=== PATIENT | male | born 1995 | race Caucasian/White ===

== ENCOUNTER 2023-06-15 22:31 | Emergency (ER) | payer MEDICAID, SELFPAY ==
--- NOTE | 2023-06-15 | ECG_ITS ---
Test Reason : SEIZURE Blood Pressure : / mmHG Vent. Rate : 075 BPM Atrial Rate : 075 BPM P-R Int : 148 ms QRS Dur : 086 ms QT Int : 370 ms P-R-T Axes : 041 085 -38 degrees QTc Int : 413 ms Normal sinus rhythm T wave abnormality, consider lateral ischemia Abnormal ECG No previous ECGs available Referred By: Generic ED Physician Electronically Signed By:AMBAR MONAE MD
[2023-06-15 22:40] VITALS: BP 123/76; BP 152/84; PULSE 74; PULSE 76; RESP 20; TEMP 36.6; O2SAT 96; BMI 25.8
--- NOTE | 2023-06-15 23:09 | ED_ITS ---
HPI - Seizure General Chief Complaint: Seizure Stated Complaint: 5 min seizure, postictal state Time Seen by Provider: 06/15/23 22:57 Source: patient and EMS Mode of arrival: EMS Limitations: no limitations History of Present Illness HPI Narrative: patient comes to the emergency room complaining of a seizure that happened at [facility]. Patient is coming in on a Section 12. According to the patient, patient has history of nonepileptic seizures. Patient states that he is not on any epileptic medications. Related Data Allergies Allergy/AdvReac Type Severity Reaction Status Date / Time alcohol [ALCOHOL] Allergy Unknown UNKNOWN Unverified 03/11/20 18:42 bee pollen [BEE STINGS] Allergy Unknown ANAPHYLAXIS Unverified 03/11/20 18:42 blueberry [BLUEBERRY] Allergy Unknown ANAPHYLAXIS Unverified 03/11/20 18:42 bupropion [From WELLBUTRIN] Allergy Unknown ONEL Unverified 03/11/20 18:42 ANASTASIIA SYNDROME cranberry [CRANBERRY] Allergy Unknown ANAPHYLAXIS Unverified 03/11/20 18:42 Review of Systems 2 Review of Systems: Constitutional : No Weight loss, No Fever, No Chills, No Night Sweats, No Fatigue, No Malaise ENT/Mouth : No Hearing loss, No Ear Pain, No Nasal Congestion, No Sinus Pain, No Hoarseness, No sore throat, No Rhinorrhea, No Swallowing Difficulty Eyes: No Eye Pain, No Swelling, No Redness, No Foreign Body, No Discharge, No Vision Changes Cardiovascular : No Chest Pain, No SOB, No Dyspnea on Exertion, No Orthopnea, No Edema, No Palpitations Respiratory : No Cough, No Sputum, No Wheezing, No Smoke Exposure, No Dyspnea Gastrointestinal : No Nausea, No Vomiting, No Diarrhea, No Constipation, No abdominal Pain, No Hematochezia, No Melena Genitourinary : no irregular bleeding, No Dysuria, No Urinary Frequency, No Hematuria, No Urinary Incontinence, No Urgency, No Flank Pain, No Urinary Flow Changes, No Hesitancy Musculoskeletal : No joint pain, No Myalgias, No Joint Swelling Skin : No Skin Lesions, No rash Neuro : No Weakness, No Numbness, No Paresthesias, No Loss of Consciousness, No Dizziness, No Headache Psych : Patient came in with a Section 12 from [facility] Heme/Lymph: No Bruising, No Bleeding,No Lymphadenopathy Endocrine : No Polyuria, No Polydipsia, No Temperature Intolerance Physical Exam 2 Vital Signs: Vital Signs: Last Vital Signs Temp 97.8 F 06/15/23 22:40 Pulse 74 06/15/23 22:40 Resp 20 06/15/23 22:40 BP 123/76 06/15/23 22:40 Pulse Ox 96 06/15/23 22:40 O2 Del Method Room Air 06/15/23 22:40 BMI result Body Mass Index 25.8 Const: Other: Appearance: Alert. Oriented X3. No acute distress. Eyes: Pupils equal, round and reactive to light. ENT: Pharynx normal. Neck: Normal inspection. Neck supple. No lymph nodes noted. No crepitus CVS: Normal heart rate and rhythm. Pulses normal. Normal S1 and S2 Respiratory: No respiratory distress. Breath sounds normal. No Wheezing. No rales Abdomen: Soft and nontender. No rigidity. No distention. Skin: Skin warm and dry. Normal skin color. Normal skin turgor. Extremities: No lower extremity edema. No Lacerations. No Rash Neuro: Oriented X 3. No motor deficit. No sensory deficit. Moving all extremities. No slurred speech. CN 2 through 12 grossly intact Psych: calm, cooperative, normal affect Medical Decision Making Medical Decision Making [facility] Narrative: - up here patient is awake, alert and oriented x3. - Patient's hematology at baseline, chemistry lipase wnl, lactic acid within normal limits. patient's vital stable - urinalysis within normal limits, urine toxicology positive for amphetamines and marijuana. - Patient ready for discharge/ transfer back to [facility] Differential Diagnosis Differential Diagnoses: The differential diagnosis associated with the presentation includes ( seizure, pseudo-seizure, nonepileptic seizure) Lab Data [facility] Lab Attestation statement: I reviewed the patient's lab results. 06/15/23 23:03 06/15/23 23:03 Labs: Lab Results 06/15/23 Range/Units 23:03 WBC 9.0 (4.8-10.8) X10*3/uL RBC 4.44 L (4.60-5.80) X10*6/uL Hgb 14.2 (14.0-18.0) g/dl Hct 41.0 L (42.0-52.0) % MCV 92.3 (80.0-98.0) fL MCH 32.0 (27.0-33.0) pg MCHC 34.6 (31.0-36.0) g/dl RDW 13.5 (11.0-16.0) % Plt Count 327 (160-400) X10*3/uL MPV 10.2 (9.4-12.4) fL Immature Gran % (Auto) 0.2 (0.0-0.4) % Neut % (Auto) 56.7 (45-73) % Lymph % (Auto) 33.1 (20-40) % [place] % (Auto) 7.8 (2-11) % Eos % (Auto) 1.8 (0-4) % Baso % (Auto) 0.4 (0-2) % Lymph # (Auto) 3.0 (1.2-4.9) X10*3/uL [place] # (Auto) 0.7 (0.1-1.2) X10*3/uL Eos # (Auto) 0.2 (0.0-0.4) X10*3/uL Baso # (Auto) 0.0 (0.0-0.2) X10*3/uL Abs Immat Gran (auto) 0.02 (0.00-0.03) X10*3/uL Absolute Neuts (auto) 5.1 (2.0-8.3) x10*3/uL Absolute Nucleated RBC 0.000 (0.0-0.012) X10*3/uL Nucleated RBC % (auto) 0.0 (0.0-0.2) /100WBC Urine Color Yellow Urine Appearance Clear Urine pH 5.5 (5.0-9.0) Ur Specific [place] <= 1.005 (1.005-1.025) Urine Protein Negative (Neg-Trace) mg/dL Urine Glucose (UA) Negative (Negative) mg/dL Urine Ketones Negative (Negative) mg/dL Urine Blood Negative (Negative) Urine Nitrite Negative (Negative) Ur Leukocyte Esterase Negative (Negative) Urine Opiates Screen Not Detected (Not Detect) Urine Fentanyl Screen Not Detected (Not Detect) Ur Barbiturates Screen Not Detected (Not Detect) Ur Phencyclidine Scrn Not Detected (Not Detect) Ur Amphetamines Screen POSITIVE H (Not Detect) U Benzodiazepines Scrn Not Detected (Not Detect) Urine Cocaine Screen Not Detected (Not Detect) U Marijuana (THC) Screen POSITIVE H (Not Detect) Discharge Plan Discharge Clinical Impression: Psychogenic nonepileptic seizure Patient Disposition: Home, Self-Care Instructions: Nonepileptic Seizures (ED) Additional Instructions: Please follow-up with your primary care physician tomorrow. If you have any worsening or new symptoms, please return to the emergency room or call 911
[2023-06-15 23:10] LABS: MANUAL DIFF FLAG NO
[2023-06-15 23:12] LABS: Basophils Percent Auto 0.4 % (0-2); Eosinophils Absolute Auto 0.2 X10*3/uL (0.0-0.4); Eosinophils Percent Auto 1.8 % (0-4); Hemoglobin 14.2 g/dl (14.0-18.0); Imm Gran Abs Auto 0.02 X10*3/uL (0.00-0.03); Imm Gran Pct Auto 0.2 % (0.0-0.4); Lymphocytes Percent Auto 33.1 % (20-40); Mean Corpuscular HGB Conc 34.6 g/dl (31.0-36.0); Mean Corpuscular Volume 92.3 fL (80.0-98.0); Mean Platelet Volume 10.2 fL (9.4-12.4); Monocytes Absolute Auto 0.7 X10*3/uL (0.1-1.2); Monocytes Percent Auto 7.8 % (2-11); Neutrophils Absolute Auto 5.1 x10*3/uL (2.0-8.3); Neutrophils Percent Auto 56.7 % (45-73); Platelet Count 327 X10*3/uL (160-400); Red Blood Count 4.44 X10*6/uL (4.60-5.80); Red Cell Distribution Width 13.5 % (11.0-16.0)
[2023-06-15 23:13] LABS: Appearance Urine Clear; Color Urine Yellow; Glucose Urine UA Negative (Negative); Leukocyte Esterase Urine Negative (Negative); Nitrite Urine Negative (Negative); PH 5.5 (5.0-9.0); Specific Gravity - Urine <= 1.005 (1.005-1.025); Urine Blood Negative (Negative); Urine Ketones Negative (Negative); Urine Protein Negative (Neg-Trace)
--- NOTE | 2023-06-15 23:15 | PC.NURSE ---
pt hammad from [facility] after staff reports seeing pt seize for 5 minutes on the floor. pt reports feeling tired before having seizure. pt now reports photosensitivity and fatigue. [facility] and si. pt currently denies thoughts of si/hi. pt normal sinus on tele. 1:1 sitter at bedside. bellows charger assembler aware of pt non green change management consultant. IV established, 20G left ac, labs obtained.
[2023-06-15 23:19] LABS: Amphetamine Screen Urine POSITIVE (Not Detect); Barbiturates, Urine Not Detected (Not Detect); Benzodiazepines Screen Urine Not Detected (Not Detect); Cannabinoid Screen Urine POSITIVE (Not Detect); Cocaine Screen Urine Not Detected (Not Detect); Fentanyl, urine Not Detected (Not Detect); Opiate Screen Urine Not Detected (Not Detect); Phencyclidine Screen Urine Not Detected (Not Detect)
[2023-06-15 23:27] LABS: Alanine Aminotransferase 17 U/L (0-40); Albumin Level 4.2 g/dL (3.5-5.0); Alkaline Phosphatase 44 U/L (39-117); Anion Gap 10 (12-20); Aspartate Amino Transferase 21 U/L (5-37); Bilirubin Total 0.8 mg/dL (0.0-1.0); Blood Urea Nitrogen 17 mg/dL (9-16); Calcium 9.7 mg/dL (8.4-10.2); Carbon Dioxide 25 mmol/L (22-29); Chloride 105 mmol/L (96-108); Creatinine Clr Calc Pharmacy 131.3; Estimated Glomerular Filt Rate > 60; Glucose Random 111 mg/dL (60-115); Potassium 3.4 mmol/L (3.3-5.1); Sodium 137 mmol/L (135-145); Total Protein 6.7 g/dL (6.5-8.0)
[2023-06-15 23:28] LABS: Bacteria Urine None Seen (None Seen); Hyaline Casts Urine 0-2 /LPF (0-2); RBC Urine 0-2 /HPF (0-2); Squamous Epithelial Cell Urine 0-2 /HPF (0-2); WBC Urine 0-5 /HPF (0-5)
--- NOTE | 2023-06-16 00:06 | MHC.EDTECH ---
call out to sandor at [phone] to book transport for pt, estimated eta given is [phone]
--- NOTE | 2023-06-16 00:31 | PC.NURSE ---
attempted to give report to Teresa spivey 3 times, no answer.
[2023-06-16 02:53] VITALS: BP 112/58; PULSE 53; RESP 16; TEMP 36.6; O2SAT 96
--- NOTE | 2023-06-16 02:54 | PC.NURSE ---
ems at bedside to transport pt to [facility]. pt ambulated on to ems stretcher with steady gait.
== END 2023-06-16 02:56 | disposition home or self-care (01) ==
PROVIDERS: Emergency Provider Emergency Medicine
DX: R56.9 Unspecified convulsions (principal); R94.31 Abnormal electrocardiogram [ECG] [EKG]; F12.122 Cannabis abuse with intoxication with perceptual disturbance; Z79.899 Other long term (current) drug therapy
CPT/HCPCS: 36415; 80053; 80307; 81001; 83605; 85025; 93005; 99284

== ENCOUNTER → 2023-06-15 22:42 | Outpatient (BNV) | payer MEDICAID, SELFPAY | PROVIDERS: Emergency Provider Emergency Medicine; Visit Provider Internal Medicine Cardiovascular Disease | DX: R94.31 Abnormal electrocardiogram [ECG] [EKG] (principal) | CPT/HCPCS: 93010 ==

== ENCOUNTER 2023-06-17 09:01 | Emergency (ER) | payer MEDICAID, SELFPAY ==
[2023-06-17 09:12] VITALS: BP 130/70; PULSE 80; O2SAT 98; BMI 25.3
[2023-06-17 09:15] VITALS: BP 121/76; PULSE 70; RESP 16; TEMP 36.8; O2SAT 96
--- NOTE | 2023-06-17 09:36 | ED_ITS ---
HPI - Seizure General Chief Complaint: Seizure Stated Complaint: SZ,AWAKE AND ALERT PER EMS Time Seen by Provider: 06/17/23 09:12 Source: patient Mode of arrival: EMS History of Present Illness HPI Narrative: 28-year-old male who presents via EMS from [facility] with a known history psychogenic seizures, not currently on any medication and currently at [facility] for voluntary admission after SI with plan to cut his throat or wrists. Patient reports that he was very upset this morning because they have not renewed his albuterol inhaler or his Flonase, he became very angry and then staff reports that he had seizure-like activity. Patient denies any headache at this time. Seizure History: Yes Related Data Allergies Allergy/AdvReac Type Severity Reaction Status Date / Time alcohol [ALCOHOL] Allergy Unknown UNKNOWN Verified 06/17/23 09:12 bee pollen [BEE STINGS] Allergy Unknown ANAPHYLAXIS Verified 06/17/23 09:12 blueberry [BLUEBERRY] Allergy Unknown ANAPHYLAXIS Verified 06/17/23 09:12 bupropion [From WELLBUTRIN] Allergy Unknown ONEL Verified 06/17/23 09:12 ANASTASIIA SYNDROME cranberry [CRANBERRY] Allergy Unknown ANAPHYLAXIS Verified 06/17/23 09:12 Review of Systems 2 Review of Systems: Pertinent positives and negatives as stated in HPI PMFSH Past Medical History Source: nursing notes reviewed Social History Social History Smoked in Last 30 Days: No Use of substances other than those prescribed or required for medical reasons: No Advance Directives: No Advance Directives Information Provided: No Physical Exam 2 Vital Signs: Vital Signs: Last Vital Signs Temp 98.0 F 06/17/23 11:59 Pulse 70 06/17/23 11:59 Resp 16 06/17/23 11:59 BP 127/66 06/17/23 11:59 Pulse Ox 97 06/17/23 11:59 O2 Del Method Room Air 06/17/23 11:59 BMI result Body Mass Index 25.3 VITAL SIGNS: Reviewed. GENERAL: Well developed, well nourished, in no acute distress. HEAD: Normocephalic/atraumatic EYES: PERRLA, EOMI EARS: Ext canals without abnormality, TMs non-bulging and non-erythematous NOSE: Nares patent bilateral OROPHARYNX: no oral lesions noted, posterior pharynx clear and non-erythematous without noted tonsillar enlargement/erythema/exudates NECK: Supple, no adenopathy LUNGS: Normal breath sounds. No adventitious sounds or accessory muscle use. SpO2<96> CARDIOVASCULAR: Regular rate and rhythm without noted murmurs ABDOMEN: Soft, non-tender, non-distended with bowel sounds. MUSCULOSKELETAL: No tenderness, deformities, or effusions noted on gross inspection. EXTREMITIES: No cyanosis, clubbing or edema. SKIN: Inspection of the skin reveals no rashes NEUROLOGIC: Alert and oriented x 4. Strength and sensation to light touch were grossly intact x 4. Medical Decision Making Medical Decision Making [facility] Narrative: 28-year-old male with history and clinical presentation most consistent with emotional induced psychogenic/nonepileptic seizure. Patient is not postictal and there are no demonstrated injuries. I will evaluate for evidence of underlying infection/electrolyte etiologies but otherwise plan to discharge back to the facility after workup. Patient was just here on 06/15- for similar presentation. I reviewed all investigations and hematologic indices remain chronically stable there are no acute derangements. Chemistry indices are grossly within normal limits. Urinalysis is negative. Viral testing is negative for COVID-19 and influenza. My interpretation is that patient experienced and emotionally induced psychogenic seizure, there is no evidence to suggest infection/anemia or electrolyte derangements. He is otherwise discharged back to the facility in stable condition. Differential Diagnosis Differential Diagnoses: The differential diagnosis associated with the presentation includes Please see the discussion above Admission/Observation Consideration of admission/observation: Escalation of care including admission/observation considered Please see the discussion above Lab Data [facility] Lab Attestation statement: I reviewed the patient's lab results. Please see the discussion above 06/17/23 10:22 06/17/23 10:22 Labs: Lab Results 06/17/23 06/17/23 Range/Units 10:22 10:55 WBC 5.9 (4.8-10.8) X10*3/uL RBC 4.39 L (4.60-5.80) X10*6/uL Hgb 14.0 (14.0-18.0) g/dl Hct 40.6 L (42.0-52.0) % MCV 92.5 (80.0-98.0) fL MCH 31.9 (27.0-33.0) pg MCHC 34.5 (31.0-36.0) g/dl RDW 13.7 (11.0-16.0) % Plt Count 293 (160-400) X10*3/uL MPV 9.9 (9.4-12.4) fL Immature Gran % (Auto) 0.2 (0.0-0.4) % Neut % (Auto) 61.5 (45-73) % Lymph % (Auto) 25.7 (20-40) % [place] % (Auto) 11.1 H (2-11) % Eos % (Auto) 1.0 (0-4) % Baso % (Auto) 0.5 (0-2) % Lymph # (Auto) 1.5 (1.2-4.9) X10*3/uL [place] # (Auto) 0.7 (0.1-1.2) X10*3/uL Eos # (Auto) 0.1 (0.0-0.4) X10*3/uL Baso # (Auto) 0.0 (0.0-0.2) X10*3/uL Abs Immat Gran (auto) 0.01 (0.00-0.03) X10*3/uL Absolute Neuts (auto) 3.6 (2.0-8.3) x10*3/uL Absolute Nucleated RBC 0.000 (0.0-0.012) X10*3/uL Nucleated RBC % (auto) 0.0 (0.0-0.2) /100WBC Sodium 141 (135-145) mmol/L Potassium 4.1 D (3.3-5.1) mmol/L Chloride 108 (96-108) mmol/L Carbon Dioxide 24 (22-29) mmol/L Anion Gap 13 (12-20) BUN 12 (9-16) mg/dL Creatinine 0.86 (0.5-1.4) mg/dL Estim Creat Clear Calc 126.7 Estimated GFR > 60 Random Glucose 92 (60-115) mg/dL Calcium 9.6 (8.4-10.2) mg/dL Total Bilirubin 1.1 H (0.0-1.0) mg/dL AST 22 (5-37) U/L ALT 17 (0-40) U/L Alkaline Phosphatase 44 (39-117) U/L Total Protein 6.9 (6.5-8.0) g/dL Albumin 4.3 (3.5-5.0) g/dL Urine Color Dark Yellow Urine Appearance Clear Urine pH 5.5 (5.0-9.0) Ur Specific [place] 1.025 (1.005-1.025) Urine Protein Negative (Neg-Trace) mg/dL Urine Glucose (UA) Negative (Negative) mg/dL Urine Ketones Trace (Negative) mg/dL Urine Blood Negative (Negative) Urine Nitrite Negative (Negative) Ur Leukocyte Esterase Small (1+) H (Negative) Urine RBC 0-2 (0-2) /HPF Urine WBC 6-10 H (0-5) /HPF Ur Squamous Epith Cells 3-5 (0-2) /HPF Urine Bacteria None Seen (None Seen) Hyaline Casts 0-2 (0-2) /LPF COVID-19 (YOSHI) Negative (Negative) COVID-19 Clin Com See Note Influenza Type A (ANGIE) Negative (Negative) Influenza Type B (ANGIE) Negative (Negative) Influenza A & B Note See Note External Record Review External record reviewed: Outpatient record, Prior outpatient labs and Prior outpatient radiology Chronic Conditions Patient?s care impacted by: Other Schizoaffective, psychogenic/nonepileptic seizures Critical Care Time Critical Care Time Critical Care Time: Yes Total Critical Care Time: 30 Attestation: I personally attest to this time spent taking care of the patient. Discharge Plan Discharge Clinical Impression: Psychogenic nonepileptic seizure Patient Disposition: Xfer Psychiatric Hosp Transfer Details: BACK TO [facility] ON SECTION 21 W/KYRIE MOLINA Instructions: Schizoaffective Disorder (ED), Nonepileptic Seizures (ED) Additional Instructions: 1. Resume all home medications as prescribed. 2. Please follow-up with the psychiatrist and/or primary care doctor within the next 24-48 hours to further discuss these psychogenic/nonepileptic seizures. Return to the ER for any worsening symptoms.
--- NOTE | 2023-06-17 09:41 | PC.NURSE ---
a&ox4, vss and up to date. pt refuses for leads/stickers to be placed for cardiac monitoring d/t rash by previous hospitalization. no seizure activity noted upon ems arrival. no seizure activity noted at this time. denies pain. pt c/o dizziness/feeling sensitive to light. respirations leobardo and unlabored. call byrd placed within reach.
--- NOTE | 2023-06-17 10:21 | PC.NURSE ---
tech bedside obtaining labs at this time.
[2023-06-17 10:27] LABS: MANUAL DIFF FLAG NO
[2023-06-17 10:28] LABS: Basophils Percent Auto 0.5 % (0-2); Eosinophils Absolute Auto 0.1 X10*3/uL (0.0-0.4); Hematocrit 40.6 % (42.0-52.0); Imm Gran Abs Auto 0.01 X10*3/uL (0.00-0.03); Imm Gran Pct Auto 0.2 % (0.0-0.4); Lymphocytes Absolute Auto 1.5 X10*3/uL (1.2-4.9); Lymphocytes Percent Auto 25.7 % (20-40); Mean Corpuscular HGB Conc 34.5 g/dl (31.0-36.0); Mean Corpuscular Hemoglobin 31.9 pg (27.0-33.0); Mean Corpuscular Volume 92.5 fL (80.0-98.0); Mean Platelet Volume 9.9 fL (9.4-12.4); Monocytes Absolute Auto 0.7 X10*3/uL (0.1-1.2); Monocytes Percent Auto 11.1 % (2-11); Neutrophils Absolute Auto 3.6 x10*3/uL (2.0-8.3); Neutrophils Percent Auto 61.5 % (45-73); Platelet Count 293 X10*3/uL (160-400); Red Blood Count 4.39 X10*6/uL (4.60-5.80); Red Cell Distribution Width 13.7 % (11.0-16.0); White Blood Count 5.9 X10*3/uL (4.8-10.8)
[2023-06-17 10:44] LABS: COVID-19 Test Negative (Negative); IDNOW Serial# BCCEAD1C
[2023-06-17 10:46] LABS: IDNOW Serial# 9DB6401D
[2023-06-17 10:47] LABS: Influenza A Negative (Negative); Influenza B2 Negative (Negative)
[2023-06-17 10:53] LABS: Alanine Aminotransferase 17 U/L (0-40); Albumin Level 4.3 g/dL (3.5-5.0); Alkaline Phosphatase 44 U/L (39-117); Anion Gap 13 (12-20); Aspartate Amino Transferase 22 U/L (5-37); Bilirubin Total 1.1 mg/dL (0.0-1.0); Blood Urea Nitrogen 12 mg/dL (9-16); Calcium 9.6 mg/dL (8.4-10.2); Carbon Dioxide 24 mmol/L (22-29); Chloride 108 mmol/L (96-108); Creatinine Clr Calc Pharmacy 126.7; Estimated Glomerular Filt Rate > 60; Glucose Random 92 mg/dL (60-115); Potassium 4.1 mmol/L (3.3-5.1); Sodium 141 mmol/L (135-145); Total Protein 6.9 g/dL (6.5-8.0)
--- NOTE | 2023-06-17 10:58 | PC.NURSE ---
urine obtained/sent to lab.
[2023-06-17 11:02] LABS: Appearance Urine Clear; Color Urine Dark Yellow; Glucose Urine UA Negative (Negative); Leukocyte Esterase Urine Small (1+) (Negative); Nitrite Urine Negative (Negative); PH 5.5 (5.0-9.0); Specific Gravity - Urine 1.025 (1.005-1.025); UMIC TRIGGER UACC YES; Urine Blood Negative (Negative); Urine Ketones Trace mg/dL (Negative); Urine Protein Negative (Neg-Trace)
[2023-06-17 11:15] LABS: Bacteria Urine None Seen (None Seen); Hyaline Casts Urine 0-2 /LPF (0-2); UACC Culture Trigger YES
[2023-06-17 11:16] LABS: RBC Urine 0-2 /HPF (0-2)
[2023-06-17 11:59] VITALS: BP 127/66; PULSE 70; RESP 16; TEMP 36.7; O2SAT 97
--- NOTE | 2023-06-17 12:04 | PC.NURSE ---
vss and up to date. pt continues to rest in no apparent distress. all results back at this time. pt awaiting d/c so he is able to transfer back to [facility]. respirations remain even/unlabored. call byrd placed within reach.
--- NOTE | 2023-06-17 13:33 | PC.NURSE ---
this RN gave report to EMS. pt transporting back to [facility] at this time.
== END 2023-06-17 13:33 ==
PROVIDERS: Emergency Provider Student in an Organized Health Care Education/Training Program
DX: R56.9 Unspecified convulsions (principal); Z11.52 Encounter for screening for COVID-19
CPT/HCPCS: 80053; 81001; 81003; 85025; 87086; 87502; 87635; 99283; 99284